=== PATIENT | female | born 1975 | race Caucasian/White ===

== ENCOUNTER 2017-12-30 08:08 | Outpatient (CLI) | payer MEDICAID ==
[2017-12-30 08:27] LABS: BASOPHILS % (AUTO) 0.3 %; EOSINOPHILS # (AUTO) 0.1 10^3/uL (0.0-0.7); EOSINOPHILS % (AUTO) 1.7 %; HGB - HEMOGLOBIN 14.3 g/dL (12.0-16.0); LYMPHOCYTES # (AUTO) 1.6 10^3/uL (1.5-3.5); LYMPHOCYTES % (AUTO) 30.3 %; MEAN CORPUSCULAR HGB CONC 33.9 g/dL (32.0-36.0); MEAN CORPUSCULAR VOLUME 85.6 fL (81.0-99.0); MEAN PLATELET VOLUME 8.9 fL (7.9-10.8); MONOCYTES # (AUTO) 0.5 10^3/uL (0.0-1.0); MONOCYTES % (AUTO) 9.8 %; NEUTROPHILS % (AUTO) 57.9 %; PLT - PLATELET COUNT 147 10^3/uL (130-450); RED BLOOD COUNT 4.92 10^6/uL (4.20-5.40); RED CELL DISTRIBUTION WIDTH 13.8 % (12.0-15.0); WHITE BLOOD COUNT 5.2 x10^3/uL (4.8-10.8)
[2017-12-30 08:56] LABS: ALBUMIN 4.2 g/dL (3.2-5.5); ALBUMIN/GLOBULIN RATIO 1.4 (1.0-2.2); BILIRUBIN,TOTAL 0.7 mg/dL (0.2-1.0); CALCIUM 9.1 mg/dL (8.5-10.3); CREATININE 0.8 mg/dL (0.4-1.0); TOTAL PROTEIN 7.1 g/dL (6.7-8.2)
== END 2017-12-30 08:09 | disposition home or self-care (01) ==
LOC: LAB 08:08
PROVIDERS: ATTEND Family Medicine
DX: I10 Essential (primary) hypertension (principal); B35.1 Tinea unguium; D50.0 Iron deficiency anemia secondary to blood loss (chronic)
CPT/HCPCS: 36415; 80053; 83540; 84466; 85025

== ENCOUNTER 2018-06-09 06:40 | Outpatient (CLI) | payer OTHER, MEDICAID ==
[2018-06-09 07:34] LABS: % IRON SATURATION 12 % (20-50); ALBUMIN 4.2 g/dL (3.2-5.5); ALBUMIN/GLOBULIN RATIO 1.4 (1.0-2.2); ALKALINE PHOSPHATASE 60 IU/L (42-121); ALT ALANINE AMINOTRANSFERASE 20 IU/L (10-60); AST ASPARTATE AMINOTRANSFERASE 23 IU/L (10-42); BASOPHILS % (AUTO) 0.4 %; BILIRUBIN,TOTAL 0.4 mg/dL (0.2-1.0); BUN - BLOOD UREA NITROGEN 12 mg/dL (6-20); CALCIUM 8.9 mg/dL (8.5-10.3); CARBON DIOXIDE - CO2 30 mmol/L (21-32); CHLORIDE 98 mmol/L (101-111); CHOL/HDL RATIO 3.3 (<4.4); CHOLESTEROL 243 mg/dL; CREATININE 0.8 mg/dL (0.4-1.0); EOSINOPHILS # (AUTO) 0.1 10^3/uL (0.0-0.7); EOSINOPHILS % (AUTO) 2.1 %; GFR - MDRD 79 (>89); GLUCOSE 95 mg/dL (70-100); HDL CHOLESTEROL 74 mg/dL; HGB - HEMOGLOBIN 12.6 g/dL (12.0-16.0); IRON 50 ug/dL (28-170); LDL CHOLESTEROL,CALCULATED 138 mg/dL; LDL/HDL RATIO 1.9 (<4.4); LYMPHOCYTES # (AUTO) 1.5 10^3/uL (1.5-3.5); LYMPHOCYTES % (AUTO) 33.3 %; MEAN CORPUSCULAR HGB CONC 34.2 g/dL (32.0-36.0); MEAN CORPUSCULAR VOLUME 84.9 fL (81.0-99.0); MEAN PLATELET VOLUME 9.4 fL (7.9-10.8); MONOCYTES # (AUTO) 0.4 10^3/uL (0.0-1.0); MONOCYTES % (AUTO) 9.1 %; NEUTROPHILS # (AUTO) 2.5 10^3/uL (1.5-6.6); NEUTROPHILS % (AUTO) 55.1 %; PLT - PLATELET COUNT 184 10^3/uL (130-450); RED BLOOD COUNT 4.35 10^6/uL (4.20-5.40); RED CELL DISTRIBUTION WIDTH 13.4 % (12.0-15.0); SODIUM 136 mmol/L (135-145); TOTAL IRON BINDING CAPACITY 434 ug/dL (250-450); TOTAL PROTEIN 7.2 g/dL (6.7-8.2); TRANSFERRIN 310 mg/dL (192-382); VLDL CHOLESTEROL 31 mg/dL; WHITE BLOOD COUNT 4.6 x10^3/uL (4.8-10.8)
[2018-06-09 07:43] LABS: THYROID STIMULATING HORMONE 1.65 uIU/mL (0.34-5.60)
[2018-06-09 07:51] LABS: FERRITIN 6.2 ng/mL (11.0-306.8)
[2018-06-09 07:55] LABS: FOLATE 20.58 ng/mL (5.90 - >24.8)
[2018-06-09 08:00] LABS: HB2 TOTAL 13.6 g/dL; HEMOGLOBIN A1C 0.44 g/dL; HEMOGLOBIN A1C % 5.1 % (4.6-6.2)
== END 2018-06-09 06:41 | disposition home or self-care (01) ==
LOC: LAB 06:40
PROVIDERS: ATTEND Family Medicine
DX: I10 Essential (primary) hypertension (principal); K21.9 Gastro-esophageal reflux disease without esophagitis; K91.2 Postsurgical malabsorption, not elsewhere classified; D50.9 Iron deficiency anemia, unspecified
CPT/HCPCS: 36415; 80053; 80061; 82306; 82607; 82728; 82746; 83036; 83540; 83721; 84425; 84443; 84466; 84590; 84630; 85025

== ENCOUNTER 2018-09-01 06:49 | Outpatient (CLI) | payer BC, MEDICAID ==
[2018-09-01 07:39] LABS: ALBUMIN 3.7 g/dL (3.2-5.5); ALBUMIN/GLOBULIN RATIO 1.3 (1.0-2.2); BILIRUBIN,TOTAL 0.4 mg/dL (0.2-1.0); CALCIUM 8.7 mg/dL (8.5-10.3); CREATININE 0.7 mg/dL (0.4-1.0); TOTAL PROTEIN 6.5 g/dL (6.7-8.2)
[2018-09-01 07:42] LABS: BASOPHILS % (AUTO) 0.5 %; EOSINOPHILS # (AUTO) 0.1 10^3/uL (0.0-0.7); EOSINOPHILS % (AUTO) 2.1 %; HGB - HEMOGLOBIN 11.8 g/dL (12.0-16.0); LYMPHOCYTES # (AUTO) 1.6 10^3/uL (1.5-3.5); LYMPHOCYTES % (AUTO) 35.8 %; MEAN CORPUSCULAR HEMOGLOBIN 26.8 pg (27.0-31.0); MEAN CORPUSCULAR HGB CONC 33.5 g/dL (32.0-36.0); MEAN PLATELET VOLUME 9.2 fL (7.9-10.8); MONOCYTES # (AUTO) 0.4 10^3/uL (0.0-1.0); MONOCYTES % (AUTO) 8.7 %; NEUTROPHILS # (AUTO) 2.3 10^3/uL (1.5-6.6); NEUTROPHILS % (AUTO) 52.9 %; PLT - PLATELET COUNT 181 10^3/uL (130-450); RED BLOOD COUNT 4.38 10^6/uL (4.20-5.40); RED CELL DISTRIBUTION WIDTH 14.4 % (12.0-15.0); WHITE BLOOD COUNT 4.4 x10^3/uL (4.8-10.8)
[2018-09-01 15:46] LABS: MAGNESIUM 2.2 mg/dL (1.7-2.8)
== END 2018-09-01 06:50 | disposition home or self-care (01) ==
LOC: LAB 06:49
PROVIDERS: ATTEND Family Medicine
DX: D50.9 Iron deficiency anemia, unspecified (principal); R94.31 Abnormal electrocardiogram [ECG] [EKG]; E87.6 Hypokalemia; Z98.84 Bariatric surgery status; E55.9 Vitamin D deficiency, unspecified
CPT/HCPCS: 36415; 80053; 82306; 82728; 83540; 83735; 84466; 85025

== ENCOUNTER 2018-10-13 06:09 | Outpatient (CLI) | payer BC, MEDICAID ==
[2018-10-13 06:24] LABS: BASOPHILS % (AUTO) 0.5 %; EOSINOPHILS # (AUTO) 0.1 10^3/uL (0.0-0.7); EOSINOPHILS % (AUTO) 1.7 %; HGB - HEMOGLOBIN 13.3 g/dL (12.0-16.0); LYMPHOCYTES # (AUTO) 2.1 10^3/uL (1.5-3.5); LYMPHOCYTES % (AUTO) 40.2 %; MEAN CORPUSCULAR HEMOGLOBIN 27.8 pg (27.0-31.0); MEAN CORPUSCULAR HGB CONC 33.5 g/dL (32.0-36.0); MEAN PLATELET VOLUME 8.5 fL (7.9-10.8); MONOCYTES # (AUTO) 0.4 10^3/uL (0.0-1.0); MONOCYTES % (AUTO) 8.1 %; NEUTROPHILS # (AUTO) 2.6 10^3/uL (1.5-6.6); NEUTROPHILS % (AUTO) 49.5 %; PLT - PLATELET COUNT 179 10^3/uL (130-450); RED BLOOD COUNT 4.77 10^6/uL (4.20-5.40); RED CELL DISTRIBUTION WIDTH 19.9 % (12.0-15.0); WHITE BLOOD COUNT 5.2 x10^3/uL (4.8-10.8)
[2018-10-13 06:54] LABS: % IRON SATURATION 19 % (20-50); IRON 57 ug/dL (28-170); TOTAL IRON BINDING CAPACITY 308 ug/dL (250-450); TRANSFERRIN 220 mg/dL (192-382)
== END 2018-10-13 06:10 | disposition home or self-care (01) ==
LOC: LAB 06:09
PROVIDERS: ATTEND Family Medicine
DX: D50.9 Iron deficiency anemia, unspecified (principal)
CPT/HCPCS: 36415; 82728; 83540; 84466; 85025

== ENCOUNTER 2019-03-27 08:00 | Outpatient (CLI) | payer BC, MEDICAID | END 2019-03-27 23:59 | disposition home or self-care (01) | LOC: LAB.R 08:00 | PROVIDERS: ATTEND Obstetrics & Gynecology | DX: L02.92 Furuncle, unspecified (principal) | CPT/HCPCS: 87070; 87181; 87205 ==

== ENCOUNTER 2019-04-17 15:27 | Outpatient (CLI) | payer BC, MEDICAID ==
--- NOTE | 2019-04-18 08:57 | Mammography Report ---
Reason: ROUTINE MAMMO Procedure Date: 04/17/2019 Accession Number: [id number] / [id number] Procedure: DARIEN - Screening Mammo w/Drew CPT Code: FULL RESULT: EXAM: Screening Mammo w/Drew DATE: 04/17/2019 3:47 PM CLINICAL HISTORY: Maternal grandmother with breast cancer TECHNIQUE: (B) - Bilateral CC and MLO views were obtained. COMPARISON: Baseline PARENCHYMAL PATTERN: (A) - The breasts demonstrate scattered fibroglandular densities bilaterally. FINDINGS: There are no suspicious masses, calcifications, skin thickening, or areas of distortion. IMPRESSION: Negative examination. BI-RADS category 1. RECOMMENDATION: (ANNUAL) - Recommend routine annual screening mammography. BI-RADS CATEGORY: (1) - Negative. STANDARD QUALIFYING STATEMENTS: 1. This examination was not reviewed with the aid of Computer-Aided Detection (CAD). 2. A negative or benign imaging report should not preclude biopsy if clinically suspicious findings are present. 3. Dense breasts may obscure an underlying neoplasm. 4. This examination was reviewed with the aid of 3D breast imaging (tomosynthesis).
== END 2019-04-17 15:28 | disposition home or self-care (01) ==
LOC: DI 15:27
DX: Z12.31 Encounter for screening mammogram for malignant neoplasm of breast (principal); Z80.3 Family history of malignant neoplasm of breast
CPT/HCPCS: 77063; 77067

== ENCOUNTER 2019-04-25 08:07 | Outpatient (CLI) | payer BC, MEDICAID ==
[2019-04-25 08:28] LABS: BASOPHILS % (AUTO) 0.3 %; EOSINOPHILS # (AUTO) 0.1 10^3/uL (0.0-0.7); EOSINOPHILS % (AUTO) 1.4 %; HGB - HEMOGLOBIN 13.3 g/dL (12.0-16.0); LYMPHOCYTES # (AUTO) 1.5 10^3/uL (1.5-3.5); LYMPHOCYTES % (AUTO) 26.3 %; MEAN CORPUSCULAR HEMOGLOBIN 29.2 pg (27.0-31.0); MEAN CORPUSCULAR HGB CONC 33.1 g/dL (32.0-36.0); MEAN CORPUSCULAR VOLUME 88.2 fL (81.0-99.0); MEAN PLATELET VOLUME 10.9 fL (7.9-10.8); MONOCYTES # (AUTO) 0.5 10^3/uL (0.0-1.0); MONOCYTES % (AUTO) 8.7 %; NEUTROPHILS # (AUTO) 3.6 10^3/uL (1.5-6.6); PLT - PLATELET COUNT 186 10^3/uL (130-450); RED BLOOD COUNT 4.56 10^6/uL (4.20-5.40); WHITE BLOOD COUNT 5.8 x10^3/uL (4.8-10.8)
[2019-04-25 08:46] LABS: HB2 TOTAL 13.7 g/dL; HEMOGLOBIN A1C 0.43 g/dL
[2019-04-25 09:54] LABS: ALBUMIN/GLOBULIN RATIO 1.3 (1.0-2.2); BILIRUBIN,TOTAL 0.6 mg/dL (0.2-1.0); CALCIUM 9.3 mg/dL (8.5-10.3); CREATININE 0.7 mg/dL (0.4-1.0)
== END 2019-04-25 08:08 | disposition home or self-care (01) ==
LOC: LAB 08:07
PROVIDERS: ATTEND Nurse Practitioner
DX: D64.9 Anemia, unspecified (principal); R73.9 Hyperglycemia, unspecified
CPT/HCPCS: 36415; 80053; 82728; 83036; 83540; 84466; 85025

== ENCOUNTER 2019-07-27 11:38 | Outpatient (CLI) | payer BC, MEDICAID ==
--- NOTE | 2019-07-30 07:31 | XRAY Report ---
Reason: PAIN IN RIGHT SHOULDER Procedure Date: 07/27/2019 Accession Number: [id number] / [id number] Procedure: XR - Shoulder 2 View RT CPT Code: Final Report FULL RESULT: EXAM: RIGHT SHOULDER RADIOGRAPHY 3 VIEWS EXAM DATE: 07/27/2019. CLINICAL HISTORY: Right shoulder pain. COMPARISON: None. TECHNIQUE: AP and scapular Y views. FINDINGS: Bones: No fracture or other acute abnormality. Small osteophytes at the margins of the acromioclavicular joint. Joints: No subluxation. Mild narrowing of the acromioclavicular joint. Glenohumeral joint appears normal. Soft tissues: No calcifications. The included right lung is clear. IMPRESSION: Mild degenerative changes of the acromioclavicular joint. Otherwise normal examination. RADIA
== END 2019-07-27 11:39 | disposition home or self-care (01) ==
LOC: DI 11:38
PROVIDERS: ATTEND Nurse Practitioner
DX: M19.011 Primary osteoarthritis, right shoulder (principal)

== ENCOUNTER 2019-11-19 20:18 | Outpatient (CLI) | payer BC, MEDICAID ==
[2019-11-19 20:36] LABS: BASOPHILS # (AUTO) 0.1 10^3/uL (0.0-0.1); BASOPHILS % (AUTO) 0.6 %; EOSINOPHILS # (AUTO) 0.1 10^3/uL (0.0-0.7); EOSINOPHILS % (AUTO) 1.4 %; HGB - HEMOGLOBIN 13.6 g/dL (12.0-16.0); LYMPHOCYTES # (AUTO) 2.6 10^3/uL (1.5-3.5); LYMPHOCYTES % (AUTO) 30.6 %; MEAN CORPUSCULAR HEMOGLOBIN 28.5 pg (27.0-31.0); MEAN CORPUSCULAR HGB CONC 33.4 g/dL (32.0-36.0); MEAN CORPUSCULAR VOLUME 85.3 fL (81.0-99.0); MEAN PLATELET VOLUME 11.3 fL (7.9-10.8); MONOCYTES % (AUTO) 11.2 %; NEUTROPHILS # (AUTO) 4.8 10^3/uL (1.5-6.6); NEUTROPHILS % (AUTO) 55.8 %; PLT - PLATELET COUNT 224 10^3/uL (130-450); RED BLOOD COUNT 4.77 10^6/uL (4.20-5.40); RED CELL DISTRIBUTION WIDTH 13.6 % (12.0-15.0); WHITE BLOOD COUNT 8.5 x10^3/uL (4.8-10.8)
[2019-11-19 20:54] LABS: % IRON SATURATION 11 % (20-50); IRON 48 ug/dL (28-170); TOTAL IRON BINDING CAPACITY 444 ug/dL (250-450); TRANSFERRIN 317 mg/dL (192-382)
== END 2019-11-19 20:19 | disposition home or self-care (01) ==
LOC: LAB 20:18
PROVIDERS: ATTEND Nurse Practitioner
DX: D64.9 Anemia, unspecified (principal); R73.9 Hyperglycemia, unspecified
CPT/HCPCS: 36415; 82728; 83540; 84466; 85025

== ENCOUNTER 2019-12-26 09:32 | Outpatient (CLI) | payer BC, MEDICAID ==
[2019-12-26 09:44] LABS: BASOPHILS % (AUTO) 0.4 %; EOSINOPHILS # (AUTO) 0.1 10^3/uL (0.0-0.7); EOSINOPHILS % (AUTO) 1.2 %; HGB - HEMOGLOBIN 13.5 g/dL (12.0-16.0); LYMPHOCYTES # (AUTO) 1.3 10^3/uL (1.5-3.5); MEAN CORPUSCULAR HEMOGLOBIN 28.2 pg (27.0-31.0); MEAN CORPUSCULAR HGB CONC 32.8 g/dL (32.0-36.0); MEAN CORPUSCULAR VOLUME 85.8 fL (81.0-99.0); MEAN PLATELET VOLUME 10.9 fL (7.9-10.8); MONOCYTES # (AUTO) 0.5 10^3/uL (0.0-1.0); MONOCYTES % (AUTO) 9.8 %; NEUTROPHILS # (AUTO) 3.2 10^3/uL (1.5-6.6); NEUTROPHILS % (AUTO) 62.4 %; PLT - PLATELET COUNT 201 10^3/uL (130-450); RED BLOOD COUNT 4.79 10^6/uL (4.20-5.40); RED CELL DISTRIBUTION WIDTH 14.3 % (12.0-15.0); WHITE BLOOD COUNT 5.1 x10^3/uL (4.8-10.8)
[2019-12-26 10:02] LABS: % IRON SATURATION 21 % (20-50); ALBUMIN 4.2 g/dL (3.2-5.5); ALBUMIN/GLOBULIN RATIO 1.2 (1.0-2.2); ALKALINE PHOSPHATASE 63 IU/L (42-121); ALT ALANINE AMINOTRANSFERASE 16 IU/L (10-60); AST ASPARTATE AMINOTRANSFERASE 18 IU/L (10-42); BILIRUBIN,TOTAL 0.8 mg/dL (0.2-1.0); BUN - BLOOD UREA NITROGEN 12 mg/dL (6-20); CALCIUM 9.1 mg/dL (8.5-10.3); CARBON DIOXIDE - CO2 29 mmol/L (21-32); CHLORIDE 96 mmol/L (101-111); CHOL/HDL RATIO 4.1 (<4.4); CHOLESTEROL 261 mg/dL; CREATININE 0.9 mg/dL (0.4-1.0); GLUCOSE 99 mg/dL (70-100); HDL CHOLESTEROL 63 mg/dL; IRON 89 ug/dL (28-170); LDL CHOLESTEROL,CALCULATED 168 mg/dL; LDL/HDL RATIO 2.7 (<4.4); SODIUM 135 mmol/L (135-145); TOTAL IRON BINDING CAPACITY 424 ug/dL (250-450); TOTAL PROTEIN 7.7 g/dL (6.7-8.2); TRANSFERRIN 303 mg/dL (192-382); VLDL CHOLESTEROL 30 mg/dL
[2019-12-26 10:19] LABS: FERRITIN 16.7 ng/mL (11.0-306.8)
== END 2019-12-26 09:33 | disposition home or self-care (01) ==
LOC: LAB 09:32
PROVIDERS: ATTEND Family Medicine
DX: E87.6 Hypokalemia (principal); Z98.84 Bariatric surgery status; D50.0 Iron deficiency anemia secondary to blood loss (chronic); E78.49 Other hyperlipidemia; E66.09 Other obesity due to excess calories; Z68.36 Body mass index [BMI] 36.0-36.9, adult
CPT/HCPCS: 36415; 80053; 80061; 82728; 83540; 83721; 84443; 84466; 85025

== ENCOUNTER 2020-08-11 09:38 | Outpatient (CLI) | payer BC, MEDICAID ==
[2020-08-11 10:13] LABS: HGB - HEMOGLOBIN 12.2 g/dL (12.0-16.0); MEAN CORPUSCULAR HEMOGLOBIN 26.9 pg (27.0-31.0); MEAN CORPUSCULAR HGB CONC 32.1 g/dL (32.0-36.0); MEAN CORPUSCULAR VOLUME 83.7 fL (81.0-99.0); MEAN PLATELET VOLUME 11.2 fL (7.9-10.8); RED BLOOD COUNT 4.54 10^6/uL (4.20-5.40); RED CELL DISTRIBUTION WIDTH 14.5 % (12.0-15.0); WHITE BLOOD COUNT 5.2 x10^3/uL (4.8-10.8)
[2020-08-11 10:36] LABS: ALBUMIN 3.8 g/dL (3.2-5.5); ALBUMIN/GLOBULIN RATIO 1.3 (1.0-2.2); ALKALINE PHOSPHATASE 65 IU/L (42-121); ALT ALANINE AMINOTRANSFERASE 24 IU/L (10-60); AST ASPARTATE AMINOTRANSFERASE 19 IU/L (10-42); BILIRUBIN,TOTAL 0.4 mg/dL (0.2-1.0); BUN - BLOOD UREA NITROGEN 11 mg/dL (6-20); CALCIUM 8.9 mg/dL (8.5-10.3); CARBON DIOXIDE - CO2 27 mmol/L (21-32); CHLORIDE 103 mmol/L (101-111); CHOL/HDL RATIO 4.2 (<4.4); CHOLESTEROL 238 mg/dL; CREATININE 0.8 mg/dL (0.4-1.0); GLUCOSE 91 mg/dL (70-100); HDL CHOLESTEROL 57 mg/dL; LDL CHOLESTEROL,CALCULATED 150 mg/dL; LDL/HDL RATIO 2.6 (<4.4); SODIUM 138 mmol/L (135-145); TOTAL PROTEIN 6.8 g/dL (6.7-8.2); VLDL CHOLESTEROL 31 mg/dL
[2020-08-11 10:49] LABS: FERRITIN 10.9 ng/mL (11.0-306.8)
[2020-08-11 13:28] LABS: % IRON SATURATION 4 % (20-50); IRON 18 ug/dL (28-170); TOTAL IRON BINDING CAPACITY 423 ug/dL (250-450); TRANSFERRIN 302 mg/dL (192-382)
== END 2020-08-11 09:39 | disposition home or self-care (01) ==
LOC: LAB 09:38
PROVIDERS: ATTEND Surgery
DX: D50.9 Iron deficiency anemia, unspecified (principal); K91.2 Postsurgical malabsorption, not elsewhere classified
CPT/HCPCS: 36415; 80053; 80061; 82306; 82607; 82728; 83540; 83721; 84425; 84466; 84590; 84630; 85027

== ENCOUNTER 2020-10-08 09:17 | Outpatient (CLI) | payer BC, MEDICAID ==
[2020-10-08 09:44] LABS: HCT - HEMATOCRIT 38.2 % (37.0-47.0); HGB - HEMOGLOBIN 12.7 g/dL (12.0-16.0); MEAN CORPUSCULAR HEMOGLOBIN 28.5 pg (27.0-31.0); MEAN CORPUSCULAR HGB CONC 33.2 g/dL (32.0-36.0); MEAN CORPUSCULAR VOLUME 85.7 fL (81.0-99.0); MEAN PLATELET VOLUME 10.6 fL (7.9-10.8); RED BLOOD COUNT 4.46 10^6/uL (4.20-5.40); RED CELL DISTRIBUTION WIDTH 14.8 % (12.0-15.0); WHITE BLOOD COUNT 4.2 x10^3/uL (4.8-10.8)
[2020-10-08 10:16] LABS: % IRON SATURATION 15 % (20-50); ALBUMIN 3.9 g/dL (3.2-5.5); ALBUMIN/GLOBULIN RATIO 1.3 (1.0-2.2); ALKALINE PHOSPHATASE 61 IU/L (42-121); ALT ALANINE AMINOTRANSFERASE 22 IU/L (10-60); AST ASPARTATE AMINOTRANSFERASE 19 IU/L (10-42); BILIRUBIN,TOTAL 0.4 mg/dL (0.2-1.0); BUN - BLOOD UREA NITROGEN 11 mg/dL (6-20); CALCIUM 8.8 mg/dL (8.5-10.3); CARBON DIOXIDE - CO2 28 mmol/L (21-32); CHLORIDE 100 mmol/L (101-111); CHOL/HDL RATIO 2.5 (<4.4); CHOLESTEROL 147 mg/dL; CREATININE 0.8 mg/dL (0.4-1.0); GFR - MDRD 78 (>89); GLUCOSE 92 mg/dL (70-100); HDL CHOLESTEROL 58 mg/dL; IRON 58 ug/dL (28-170); LDL CHOLESTEROL,CALCULATED 65 mg/dL; LDL/HDL RATIO 1.1 (<4.4); POTASSIUM 3.5 mmol/L (3.5-5.0); SODIUM 137 mmol/L (135-145); TOTAL IRON BINDING CAPACITY 377 ug/dL (250-450); TOTAL PROTEIN 6.8 g/dL (6.7-8.2); TRANSFERRIN 269 mg/dL (192-382); TRIGLYCERIDES 118 mg/dL; VLDL CHOLESTEROL 24 mg/dL
[2020-10-08 10:18] LABS: FERRITIN 42.9 ng/mL (11.0-306.8)
[2020-10-08 10:21] LABS: FOLATE 8.98 ng/mL (5.90 - >24.8)
== END 2020-10-08 09:18 | disposition home or self-care (01) ==
LOC: LAB 09:17
PROVIDERS: ATTEND Surgery
DX: K91.2 Postsurgical malabsorption, not elsewhere classified (principal)
CPT/HCPCS: 36415; 80053; 80061; 82306; 82607; 82728; 82746; 83540; 83721; 84425; 84466; 84590; 84630; 85027

== ENCOUNTER 2021-02-04 08:53 | Outpatient (CLI) | payer BC, MEDICAID ==
[2021-02-04 09:37] LABS: HCT - HEMATOCRIT 37.4 % (37.0-47.0); HGB - HEMOGLOBIN 12.7 g/dL (12.0-16.0); MEAN CORPUSCULAR HEMOGLOBIN 29.7 pg (27.0-31.0); MEAN CORPUSCULAR VOLUME 87.6 fL (81.0-99.0); MEAN PLATELET VOLUME 11.9 fL (7.9-10.8); RED BLOOD COUNT 4.27 10^6/uL (4.20-5.40); RED CELL DISTRIBUTION WIDTH 13.8 % (12.0-15.0); WHITE BLOOD COUNT 3.7 x10^3/uL (4.8-10.8)
[2021-02-04 09:58] LABS: % IRON SATURATION 20 % (20-50); ALBUMIN/GLOBULIN RATIO 1.6 (1.0-2.2); ALKALINE PHOSPHATASE 74 IU/L (42-121); ALT ALANINE AMINOTRANSFERASE 21 IU/L (10-60); AST ASPARTATE AMINOTRANSFERASE 16 IU/L (10-42); BILIRUBIN,TOTAL 0.6 mg/dL (0.2-1.0); BUN - BLOOD UREA NITROGEN 9 mg/dL (6-20); CALCIUM 8.9 mg/dL (8.5-10.3); CARBON DIOXIDE - CO2 26 mmol/L (21-32); CHLORIDE 102 mmol/L (101-111); CHOLESTEROL 176 mg/dL; CREATININE 0.7 mg/dL (0.4-1.0); GFR - MDRD 90 (>89); GLUCOSE 88 mg/dL (70-100); HDL CHOLESTEROL 44 mg/dL; IRON 64 ug/dL (28-170); LDL CHOLESTEROL,CALCULATED 109 mg/dL; LDL/HDL RATIO 2.5 (<4.4); POTASSIUM 3.1 mmol/L (3.5-5.0); SODIUM 138 mmol/L (135-145); TOTAL IRON BINDING CAPACITY 321 ug/dL (250-450); TOTAL PROTEIN 6.5 g/dL (6.7-8.2); TRANSFERRIN 229 mg/dL (192-382); TRIGLYCERIDES 116 mg/dL; VLDL CHOLESTEROL 23 mg/dL
[2021-02-04 10:14] LABS: FERRITIN 64.6 ng/mL (11.0-306.8)
[2021-02-04 10:18] LABS: FOLATE 9.52 ng/mL (5.90 - >24.8)
[2021-02-04 11:56] LABS: ESTIMATED AVERAGE GLUCOSE 94 mg/dL (70-100); HEMOGLOBIN A1c% 4.9 % (4.27-6.07)
== END 2021-02-04 08:54 | disposition home or self-care (01) ==
LOC: LAB 08:53
PROVIDERS: ATTEND Physician Assistant
DX: K91.2 Postsurgical malabsorption, not elsewhere classified (principal)
CPT/HCPCS: 36415; 80053; 80061; 82306; 82607; 82728; 82746; 83036; 83540; 83721; 84425; 84466; 84590; 84630; 85027

== ENCOUNTER 2023-12-14 08:00 | Outpatient (CLI) | payer BC, MEDICAID ==
[2023-12-14 20:32] LABS: BACTERIAL VAGINOSIS DNA NEGATIVE (NEGATIVE); CANDIDA GLABRATA DNA NEGATIVE (NEGATIVE); CANDIDA GROUP DNA NEGATIVE (NEGATIVE); CANDIDA KRUSEI DNA NEGATIVE (NEGATIVE); TRICHOMONAS VAGINALIS DNA NEGATIVE (NEGATIVE)
== END 2023-12-14 23:59 | disposition home or self-care (01) ==
LOC: LAB.WC 08:00
PROVIDERS: ATTEND Obstetrics & Gynecology
DX: N76.0 Acute vaginitis (principal)
CPT/HCPCS: 81514

== ENCOUNTER 2024-01-23 12:12 | Observation (INO) | payer BC ==
[2024-01-23 12:44] LABS: BASOPHILS % (AUTO) 0.6 %; EOSINOPHILS # (AUTO) 0.1 10^3/uL (0.0-0.7); EOSINOPHILS % (AUTO) 2.4 %; LYMPHOCYTES # (AUTO) 1.4 10^3/uL (1.5-3.5); LYMPHOCYTES % (AUTO) 29.1 %; MEAN CORPUSCULAR HEMOGLOBIN 15.8 pg (27.0-31.0); MEAN CORPUSCULAR HGB CONC 25.8 g/dL (32.0-36.0); MEAN CORPUSCULAR VOLUME 61.5 fL (81.0-99.0); MONOCYTES # (AUTO) 0.5 10^3/uL (0.0-1.0); MONOCYTES % (AUTO) 9.6 %; NEUTROPHILS # (AUTO) 2.7 10^3/uL (1.5-6.6); NEUTROPHILS % (AUTO) 58.1 %; PLT - PLATELET COUNT 218 10^3/uL (130-450); RED BLOOD COUNT 3.22 10^6/uL (4.20-5.40); RED CELL DISTRIBUTION WIDTH 21.1 % (12.0-15.0); WHITE BLOOD COUNT 4.7 x10^3/uL (4.8-10.8)
[2024-01-23 12:47] LABS: HCT - HEMATOCRIT 19.8 % (37.0-47.0); HGB - HEMOGLOBIN 5.1 g/dL (12.0-16.0)
[2024-01-23 12:48] LABS: RBC MORPHOLOGY (MULTIPLE) 4+ ANISOCYTOSIS (NORMAL); SLIDE REVIEW? Indicated
[2024-01-23 12:58] LABS: PARTIAL THROMBOPLASTIN TIME 26.8 secs (24.9-33.3)
[2024-01-23 13:02] LABS: INR 1.2 (0.8-1.2); PT - PROTHROMBIN TIME 12.5 secs (9.9-12.6)
--- NOTE | 2024-01-23 13:06 | ED Physician Documentation ---
History of Present Illness - Stated complaint Stated Complaint: LOW H/H - Chief complaint Chief Complaint: General - History obtained from History obtained from: Patient - History of Present Illness Timing: Chronic Pain level max: 0 Pain level now: 0 - Additonal information Additional information: 48-year-old female presents to the emergency department. History of iron deficiency anemia, used to receive iron infusions, but has not received one on 01/18/2022. She has been feeling fatigued and weak with exertion. Outpatient H&H was 5.3, primary care provider instructed her to come to the emergency department. No rectal bleeding. She is currently on her menses. She is not on any anticoagulants. Better with rest, worse with exertion. Review of Systems Constitutional: denies: Fever Respiratory: denies: Cough GI: denies: Vomiting, Diarrhea PD PAST MEDICAL HISTORY - Past Medical History Past Medical History: No - Past Surgical History Past Surgical History: Yes /WELLNESS DIRECTOR: section - Present Medications Home Medications: Ambulatory Orders Medication Instructions Recorded Confirmed Acetaminophen [Tylenol] 1,300 mg PO BID 01/23/24 01/23/24 Cetirizine HCl [Zyrtec] 10 mg PO DAILY 01/23/24 01/23/24 Estradiol [Estrace] 42.5 gm VG PRN PRN 01/23/24 01/23/24 Melatonin 10 mg PO HS 01/23/24 01/23/24 Norethindrone-E.estradiol-Iron [Lo 1 tab ORAL DAILY 01/23/24 01/23/24 Loestrin Fe 1-10 Tablet] Ondansetron Odt [Zofran Odt] 4 mg TL Q8HR PRN 01/23/24 01/23/24 Pregabalin 100 mg PO HS 01/23/24 01/23/24 Zolpidem [Ambien] 5 mg PO HS PRN 01/23/24 01/23/24 - Allergies Allergies/Adverse Reactions: Allergies Allergy/AdvReac Type Severity Reaction Status Date / Time No Known Drug Allergies Allergy Verified 01/23/24 12:24 - Social History Does the pt smoke?: No Smoking Status: Never smoker Does the pt drink ETOH?: No PD ED PE NORMAL - Vitals Vital signs reviewed: Yes - General General: Alert and oriented X 3, No acute distress, Other (Pale appearing) - HEENT HEENT: Moist mucous membranes - Neck Neck: Supple, no meningeal sign - Cardiac Cardiac: RRR, Strong equal pulses - Respiratory Respiratory: No respiratory distress, Clear bilaterally - Abdomen Abdomen: Soft, Non tender, Non distended - Derm Derm: Warm and dry - Neuro Neuro: Alert and oriented X 3 - Psych Psych: Normal mood, Normal affect Results - Vitals Vitals: Vital Signs - 24 hr 01/23/24 01/23/24 12:15 13:13 Temperature 36.6 C Heart Rate 69 62 Respiratory 20 12 Rate Blood Pressure 142/63 H 165/85 H O2 Saturation 99 99 Oxygen O2 Source Room air - Labs Labs: Laboratory Tests 01/23/24 01/23/24 01/23/24 12:33 12:33 12:33 WBC 4.7 L RBC 3.22 L Hgb 5.1 L* Hct 19.8 L* MCV 61.5 L MCH 15.8 L MCHC 25.8 L RDW 21.1 H Plt Count 218 Neut # (Auto) 2.7 Lymph # (Auto) 1.4 L [place] # (Auto) 0.5 Eos # (Auto) 0.1 Baso # (Auto) 0.0 Absolute Nucleated RBC 0.00 Nucleated RBC % 0.0 Manual Slide Review Indicated RBC Morph Micro Appear 4+ ANISOCYTOSIS PT 12.5 INR 1.2 APTT 26.8 Sodium Potassium Chloride Carbon Dioxide Anion Gap BUN Creatinine Estimated GFR (MDRD) Glucose Calcium Iron TIBC % Saturation Transferrin Total Bilirubin AST ALT Alkaline Phosphatase Total Protein Albumin Globulin Albumin/Globulin Ratio Lipase Serum HCG, Qual Blood Type A NEGATIVE Antibody Screen NEGATIVE Crossmatch IS Only See Detail 01/23/24 01/23/24 12:33 12:33 WBC RBC Hgb Hct MCV MCH MCHC RDW Plt Count Neut # (Auto) Lymph # (Auto) [place] # (Auto) Eos # (Auto) Baso # (Auto) Absolute Nucleated RBC Nucleated RBC % Manual Slide Review RBC Morph Micro Appear PT INR APTT Sodium 140 Potassium 3.6 Chloride 108 Carbon Dioxide 26 Anion Gap 6.0 BUN 12 Creatinine 0.8 Estimated GFR (MDRD) 77 L Glucose 83 Calcium 9.0 Iron 12 L TIBC 658 H % Saturation 2 L Transferrin 470 H Total Bilirubin 0.3 AST 12 ALT 9 L Alkaline Phosphatase 78 Total Protein 6.6 Albumin 4.2 Globulin 2.4 Albumin/Globulin Ratio 1.8 Lipase < 10 L Serum HCG, Qual NEGATIVE Blood Type Antibody Screen Crossmatch IS Only PD Medical Decision Making - ED course Complexity details: reviewed results, re-evaluated patient, considered differential, d/w patient, d/w ux consultant ED course: 48-year-old female with significant symptomatic anemia, hemoglobin down to 5. She will need several units of blood, therefore we will place the patient in observation. Discussed the case with the hospitalist who accepts. This document was made in part using voice recognition software. While efforts are made to proofread this document, sound alike and grammatical errors may occur. Departure - Departure Disposition: ED Place in Observation Clinical Impression: Symptomatic anemia Condition: Good Discharge Date/Time: 01/23/24 14:09
[2024-01-23 13:21] LABS: % IRON SATURATION 2 % (20-50); IRON 12 ug/dL (50-212); TOTAL IRON BINDING CAPACITY 658 ug/dL (250-450); TRANSFERRIN 470 mg/dL (203-362)
[2024-01-23 13:22] LABS: ALBUMIN 4.2 g/dL (3.2-5.5); ALBUMIN/GLOBULIN RATIO 1.8 (1.0-2.2); ALKALINE PHOSPHATASE 78 IU/L (42-121); ALT ALANINE AMINOTRANSFERASE 9 IU/L (10-60); AST ASPARTATE AMINOTRANSFERASE 12 IU/L (10-42); BILIRUBIN,TOTAL 0.3 mg/dL (0.2-1.0); BUN - BLOOD UREA NITROGEN 12 mg/dL (6-20); CARBON DIOXIDE - CO2 26 mmol/L (21-32); CHLORIDE 108 mmol/L (101-111); CREATININE 0.8 mg/dL (0.6-1.3); GFR - MDRD 77 (>89); GLUCOSE 83 mg/dL (74-104); HCG,QUALITATIVE BLOOD NEGATIVE; POTASSIUM 3.6 mmol/L (3.5-4.5); SODIUM 140 mmol/L (135-145); TOTAL PROTEIN 6.6 g/dL (6.4-8.9)
[2024-01-23 13:29] LABS: LIPASE < 10 U/L (11-82)
[2024-01-23] MEDS ORDERED: SODIUM CHLORIDE FLUSH 0.9% 10 ML SYRINGE IVP PRN (13:45)
[2024-01-23] MEDS ORDERED: ONDANSETRON ODT 4 MG TABLET TL PRN ×2 (13:45→13:53)
--- NOTE | 2024-01-23 13:57 | HISTORY & PHYSICAL EXAMINATION ---
Chief Complaint - Chief Complaint Chief Complaint: Weakness History of Present Illness - Admitted From Admitted From:: Admitted from the ED - History Obtained From Records Reviewed: Yes History obtained from: Patient - History of Present Illness HPI Comment/Other: Today the patient is an extremely pleasant 48-year-old female. She has no significant past medical history. She has been following as an outpatient with a naturopathic physician who ordered some lab work. She was sent to the emergency room as she was found to have severe anemia. Workup in the emergency room was unremarkable other than the fact that the patient was found to have a hemoglobin of 5.1. Sound hospitalist were consulted for admission. When I went to see the patient she is resting comfortably in the bed. She says she has been quite weak. She has been having extremely heavy periods and is following with a naturopathic physician for perimenopausal type of symptoms. She denies fever or chills. No chest pain or significant shortness of breath. No nausea vomiting or diarrhea. No urinary complaints History - Past Medical History Cardiovascular: reports: None Respiratory: reports: None Neuro: reports: None Endocrine/Autoimmune: reports: None GI: reports: None CREDIT RATING INSPECTOR: reports: Other (Perimenopause with menorrhagia) : reports: None HEENT: reports: None Psych: reports: None Musculoskeletal: reports: Other (Cervical stenosis) Derm: reports: None MRSA Hx?: Yes - Past Surgical History General: reports: Gastric surgery (History of a gastric bypass) /CREDIT RATING INSPECTOR: reports: section - Family & Social History Family History: Mother: Alive and Well, Hypertension, Father: , Cancer (Grandparents), Other family: CAD, Cancer Living arrangement: Other (The patient lives at home with her parents, adult son and young daughter) Living Situation: With family - Substance History Use: Uses substance without health or social issues: NONE Dependence: Experiences withdrawal or developed tolerances: NONE - POLST Patient has POLST: No POLST Status: Full Code Meds/Allgy - Home Medications Home Medications: Ambulatory Orders Medication Instructions Recorded Confirmed Cetirizine HCl [Zyrtec] 10 mg PO DAILY 01/23/24 01/23/24 Melatonin 10 mg PO HS 01/23/24 01/23/24 Norethindrone-E.estradiol-Iron [Lo 1 tab ORAL DAILY 01/23/24 01/23/24 Loestrin Fe 1-10 Tablet] Ondansetron Odt [Zofran Odt] 4 mg TL Q8HR PRN 01/23/24 01/23/24 Pregabalin [Lyrica] 100 mg PO DAILY PM 01/23/24 01/23/24 - Allergies Allergies/Adverse Reactions: Allergies Allergy/AdvReac Type Severity Reaction Status Date / Time No Known Drug Allergies Allergy Verified 01/23/24 12:24 Review of Systems - Constitutional Constitutional: reports: Fatigue - Genitourinary Genitourinary: reports: Other (Menorrhagia) - Musculoskeletal Musculoskeletal: reports: Other (Mild neck pain) - Hematologic/Lymphatic Hematologic/Lymphatic: reports: Anemia Prior Level of Functionality: Fully functional with her ADLs Exam - Vital Signs Reviewed Vital Signs: Yes Vital Signs: Vital Signs x48h Temp Pulse Resp BP Pulse Ox 01/23/24 13:13 62 12 165/85 H 99 01/23/24 12:15 36.6 C 69 20 142/63 H 99 - Physical Exam General Appearance: positive: No acute distress, Alert Eyes Bilateral: positive: Normal inspection ENT: positive: ENT inspection nml Neck: positive: Nml inspection Respiratory: positive: Chest non-tender Cardiovascular: positive: Regular rate & rhythm, No murmur, No gallop. negative: Friction rub Abdomen: positive: Non-tender, No organomegaly, Nml bowel sounds Skin: positive: Color nml, No rash, Warm, Dry Extremities: positive: Non-tender, Full ROM, Nml appearance Neurologic/Psychiatric: positive: Oriented x3, CN's nml (2-12) Sepsis Event Note (H) - Evaluation Current Stage of Sepsis: Ruled out Conclusion/Plan - Problem List (1) Acute blood loss anemia Conclusion/Plan: The patient presents to the emergency room with acute blood loss anemia and due to menorrhagia. She will receive 2 units of packed red blood cells. We will repeat a CBC posttransfusion. Will transfuse the patient until her hemoglobin is up to 7. (2) Iron deficiency Conclusion/Plan: The patient has known iron deficiency. She has a history of a gastric bypass. She does not absorb p.o. iron. She previously used to get iron infusions. Her primary care provider went out on maternity leave and she has not been back to see her in a year and a half and has not been getting iron infusions. Will give her a dose of IV Feraheme during this hospitalization. She is encouraged to get back to her primary care physician and resume her iron infusions (3) Menorrhagia Conclusion/Plan: She is working with a naturopathic physician. She recently was started on control pills which will be continued during this hospitalization. This was to help manage her heavy bleeding. (4) Cervical spinal stenosis Conclusion/Plan: She takes Lyrica 50 mg nightly for neuropathic pain from her spinal stenosis. (5) Obesity (BMI 30.0-34.9) Conclusion/Plan: Weight loss is recommended through dietary modification and exercise as tolerated - Lab Results Fish Bones: 01/23/24 12:33 01/23/24 12:33 - Other Other Results/Comments: Disposition: The patient will be placed in observation in the hospital. She will be transfused 2 units of packed red blood cells. I fully expect her hospitalization to span less than 2 midnights and plan to discharge the patient first thing in the morning. Time spent: 35 minutes
--- NOTE | 2024-01-23 14:38 | PHARMACY PROGRESS NOTE ---
- Best Possible Medication History Admit Date and Time: 01/23/24 5326 Processed by: Pharmacy Medications reviewed in ED?: No Medication History completed: Yes Patient Interview: Completed Secondary Source(s): Insurance records As the person ultimately responsible for medication therapy, providers are able to order a medication from an existing home medication list in [facility] via the "Reconcile Routine" prior to Confirmation of that medication by direct support professional caregiver. Such practice is discouraged except when the physician, in their clinical judgment, deems that a medical need exists for a medication without regard to previous use.
[2024-01-23] MEDS: FERRIC GLUCONATE 125 MG in SODIUM CHLORIDE 0.9% 100ML 100 ML IV ONE (15:04)
[2024-01-23] MEDS ORDERED: SODIUM CHLORIDE 0.9% 500 ML IV ONE (15:47)
[2024-01-23] MEDS: diphenhydrAMINE 25 MG CAPSULE PO ONE (16:05)
[2024-01-23] MEDS: ACETAMINOPHEN 325 MG TABLET PO ONE (16:05)
[2024-01-23] MEDS: SODIUM CHLORIDE FLUSH 0.9% 10 ML SYRINGE IVP SCH (16:23)
[2024-01-23] MEDS: MELATONIN 10MG TAB PO SCH (20:33)
[2024-01-23] MEDS: ZOLPIDEM 5 MG TABLET PO PRN (22:39)
[2024-01-23] MEDS: PREGABALIN 100 MG CAPSULE PO SCH (22:39)
[2024-01-23 23:22] LABS: MEAN CORPUSCULAR HEMOGLOBIN 18.5 pg (27.0-31.0); MEAN CORPUSCULAR HGB CONC 27.8 g/dL (32.0-36.0); MEAN CORPUSCULAR VOLUME 66.5 fL (81.0-99.0); PLT - PLATELET COUNT 184 10^3/uL (130-450); RED BLOOD COUNT 3.46 10^6/uL (4.20-5.40); RED CELL DISTRIBUTION WIDTH 25.7 % (12.0-15.0); WHITE BLOOD COUNT 4.4 x10^3/uL (4.8-10.8)
[2024-01-23 23:30] LABS: HGB - HEMOGLOBIN 6.4 g/dL (12.0-16.0)
[2024-01-24 05:31] LABS: BASOPHILS % (AUTO) 0.7 %; EOSINOPHILS # (AUTO) 0.1 10^3/uL (0.0-0.7); EOSINOPHILS % (AUTO) 2.4 %; HCT - HEMATOCRIT 27.2 % (37.0-47.0); LYMPHOCYTES # (AUTO) 1.1 10^3/uL (1.5-3.5); LYMPHOCYTES % (AUTO) 25.5 %; MEAN CORPUSCULAR HEMOGLOBIN 20.1 pg (27.0-31.0); MEAN CORPUSCULAR HGB CONC 29.4 g/dL (32.0-36.0); MEAN CORPUSCULAR VOLUME 68.3 fL (81.0-99.0); MONOCYTES # (AUTO) 0.6 10^3/uL (0.0-1.0); NEUTROPHILS # (AUTO) 2.4 10^3/uL (1.5-6.6); NEUTROPHILS % (AUTO) 57.2 %; PLT - PLATELET COUNT 169 10^3/uL (130-450); RED BLOOD COUNT 3.98 10^6/uL (4.20-5.40); RED CELL DISTRIBUTION WIDTH 27.7 % (12.0-15.0); WHITE BLOOD COUNT 4.2 x10^3/uL (4.8-10.8)
[2024-01-24 05:51] LABS: SLIDE REVIEW? Indicated
[2024-01-24 06:19] LABS: PLATELET ESTIMATE, MANUAL NORMAL (130-450,000) (NORMAL)
[2024-01-24 08:22] LABS: HCT - HEMATOCRIT 29.4 % (37.0-47.0); HGB - HEMOGLOBIN 8.4 g/dL (12.0-16.0); MEAN CORPUSCULAR HGB CONC 28.6 g/dL (32.0-36.0); MEAN CORPUSCULAR VOLUME 69.8 fL (81.0-99.0); PLT - PLATELET COUNT 127 10^3/uL (130-450); RED BLOOD COUNT 4.21 10^6/uL (4.20-5.40); RED CELL DISTRIBUTION WIDTH 27.6 % (12.0-15.0); WHITE BLOOD COUNT 4.3 x10^3/uL (4.8-10.8)
[2024-01-24] MEDS: CETIRIZINE 10 MG TABLET PO SCH (09:10)
--- NOTE | 2024-01-24 10:21 | Discharge Plan ---
Discharge Plan Problem Reviewed?: Yes Disposition: Home, Self Care Condition: Good Diet: Regular Activity Restrictions: No Restrictions Shower Restrictions: No Driving Restrictions: No Weight Bearing: Full Weight Health Concerns: Menorrhagia Iron defiency Assessment: 1. Acute blood loss anemia secondary to menorrhagia The patient has received 3 units of packed red blood cells with the appropriate response to her hemoglobin. Hemoglobin is stable at 8.4 on the day of discharge. She needs to follow-up with her FIELD HEALTH OFFICER within the next couple of weeks. 2. Iron deficiency Patient with a history of gastric bypass surgery and she does not absorb p.o. iron. She previously was on iron infusions monthly however has not had any infusions in the past 18 months. Her PCP went out on maternity leave and has been back for quite some time but the patient has not scheduled an appointment with her. She should follow-up with her PCP in the next week 3. Menorrhagia She should follow-up with FIELD HEALTH OFFICER. She is also following with a naturopathic physician for perimenopausal symptoms. Continue control pills that have been prescribed to help control her heavy bleeding 4. Cervical spinal stenosis Continue home dose of Lyrica 50 mg at night 5. Obesity BMI 30.0 Weight loss is recommended through dietary modification and exercise as tolerated No Smoking: If you smoke, Please STOP! Call for help. Follow-up with: ARMOND APODACA DO [Primary Care Provider] -
--- NOTE | 2024-01-24 10:28 | DISCHARGE SUMMARY ---
Discharge Summary Admit Date: 01/23/24 Discharge Date: 01/24/24 Discharging Provider: Oriana Lima PA-C Primary Care Provider: Dr Jackie Dickson Code Status: Attempt Resuscitation Condition at Discharge: Good Discharge Disposition: 01 Home, Self Care - DIAGNOSES Discharge Diagnoses with Status of Each Condition: 1. Acute blood loss anemia secondary to menorrhagia The patient has received 3 units of packed red blood cells with the appropriate response to her hemoglobin. Hemoglobin is stable at 8.4 on the day of discharge. She needs to follow-up with her COLLAR STITCHER within the next couple of weeks. 2. Iron deficiency Patient with a history of gastric bypass surgery and she does not absorb p.o. iron. She previously was on iron infusions monthly however has not had any infusions in the past 18 months. Her PCP went out on maternity leave and has been back for quite some time but the patient has not scheduled an appointment with her. She should follow-up with her PCP in the next week. Of note she did receive a dose of IV iron yesterday 3. Menorrhagia She should follow-up with COLLAR STITCHER. She is also following with a naturopathic physician for perimenopausal symptoms. Continue control pills that have been prescribed to help control her heavy bleeding 4. Cervical spinal stenosis Continue home dose of Lyrica 50 mg at night 5. Obesity BMI 30.0 Weight loss is recommended through dietary modification and exercise as fifi rated - HPI History of Present Illness: From the admission HP: The patient is an extremely pleasant 48-year-old female. She has no significant past medical history. She has been following as an outpatient with a naturopathic physician who ordered some lab work. She was sent to the emergency room as she was found to have severe anemia. Workup in the emergency room was unremarkable other than the fact that the patient was found to have a hemoglobin of 5.1. Sound hospitalist were consulted for admission. When I went to see the patient she is resting comfortably in the bed. She says she has been quite weak. She has been having extremely heavy periods and is following with a naturopathic physician for perimenopausal type of symptoms. She denies fever or chills. No chest pain or significant shortness of breath. No nausea vomiting or diarrhea. No urinary complaints - HOSPITAL COURSE Hospital Course: The patient was admitted to the hospital. She was given a dose of IV iron. She received 3 units of packed red blood cells with the appropriate response to her hemoglobin. Today the patient is feeling much improved and feels that she is stable to go home. She is encouraged to see her PCP to resume her iron infusions. She also was encouraged to follow-up with COLLAR STITCHER. At this point maximum hospital benefit has been reached. The patient will be discharged today in stable condition. - ALLERGIES Allergies/Adverse Reactions: Allergies Allergy/AdvReac Type Severity Reaction Status Date / Time No Known Drug Allergies Allergy Verified 01/23/24 12:24 - MEDICATIONS Home Medications: Ambulatory Orders Medication Instructions Recorded Confirmed Acetaminophen [Tylenol] 1,300 mg PO BID 01/23/24 01/23/24 Cetirizine HCl [Zyrtec] 10 mg PO DAILY 01/23/24 01/23/24 Estradiol [Estrace] 42.5 gm VG PRN PRN 01/23/24 01/23/24 Melatonin 10 mg PO HS 01/23/24 01/23/24 Norethindrone-E.estradiol-Iron [Lo 1 tab ORAL DAILY 01/23/24 01/23/24 Loestrin Fe 1-10 Tablet] Ondansetron Odt [Zofran Odt] 4 mg TL Q8HR PRN 01/23/24 01/23/24 Pregabalin 100 mg PO HS 01/23/24 01/23/24 Zolpidem [Ambien] 5 mg PO HS PRN 01/23/24 01/23/24 - PHYSICAL EXAM AT DISCHARGE General Appearance: positive: No acute distress Eyes Bilateral: positive: Normal inspection ENT: positive: ENT inspection nml Neck: positive: Nml inspection Respiratory: positive: Chest non-tender, No respiratory distress, Breath sounds nml Abdomen: positive: Non-tender, No organomegaly, Nml bowel sounds Skin: positive: Color nml, No rash, Warm Extremities: positive: Non-tender, Full ROM Neurologic/Psychiatric: positive: Oriented x3, CN's nml (2-12) - LABS Result Diagrams: 01/24/24 07:50 01/23/24 12:33 - SEPSIS Current Stage of Sepsis: Ruled out - QUALITY (Female Hip Fx Only) Was patient sent home on osteoporosis medication?: No - FOLLOW UP Follow Up: Primary care in 1 week, OBGYN as soon as possible - TIME SPENT Time Spent in Discharge (Minutes): 35
[2024-01-24 11:20] VITALS: BP 149/94; O2SAT 96
== END 2024-01-24 11:30 | disposition home or self-care (01) ==
LOC: ED 12:12 → MS2 13:45 → INTOOBSV 13:45
PROVIDERS: ADMIT Physician Assistant; ATTEND Physician Assistant
DX: D62 Acute posthemorrhagic anemia (principal); N92.0 Excessive and frequent menstruation with regular cycle; E61.1 Iron deficiency; M48.02 Spinal stenosis, cervical region; E66.9 Obesity, unspecified; Z68.30 Body mass index [BMI] 30.0-30.9, adult; Z98.84 Bariatric surgery status
CPT/HCPCS: 36415; 36430; 80053; 82607; 82746; 83540; 83690; 84466; 84703; 85025; 85027; 85610; 85730; 86850; 86900; 86901; 86920; 96365; 96366; 99284; 99285; A9270; G0378; J2916; P9016

== ENCOUNTER 2024-02-21 08:21 | Day surgery (SDC) | payer BC ==
[~2024-02-21 08:21] MED LIST: ceFAZolin 2 GM VIAL ONE; metroNIDAZOLE 500 MG/100 ML 500 MG/100 ML BAG ONE
[2024-02-21] MEDS: LACTATED RINGERS 1,000 ML IV ONE ×3 (08:29→12:45)
[2024-02-21 08:45] LABS: HCG UR QUAL NEGATIVE
[2024-02-21] MEDS: ACETAMINOPHEN 325 MG TABLET PO ONE (08:56)
[2024-02-21 09:30] LABS: BASOPHILS % (AUTO) 0.5 %; EOSINOPHILS # (AUTO) 0.1 10^3/uL (0.0-0.7); EOSINOPHILS % (AUTO) 1.9 %; HCT - HEMATOCRIT 36.5 % (37.0-47.0); LYMPHOCYTES # (AUTO) 1.3 10^3/uL (1.5-3.5); LYMPHOCYTES % (AUTO) 36.1 %; MEAN CORPUSCULAR HEMOGLOBIN 23.2 pg (27.0-31.0); MEAN CORPUSCULAR HGB CONC 30.1 g/dL (32.0-36.0); MEAN CORPUSCULAR VOLUME 76.8 fL (81.0-99.0); MONOCYTES # (AUTO) 0.3 10^3/uL (0.0-1.0); MONOCYTES % (AUTO) 8.9 %; NEUTROPHILS # (AUTO) 1.9 10^3/uL (1.5-6.6); NEUTROPHILS % (AUTO) 52.3 %; PLT - PLATELET COUNT 170 10^3/uL (130-450); RED BLOOD COUNT 4.75 10^6/uL (4.20-5.40); WHITE BLOOD COUNT 3.7 x10^3/uL (4.8-10.8)
--- NOTE | 2024-02-21 09:33 | ANESTHESIA ---
Pre-Anesthesia VS, & Labs - Diagnosis premenopausal bleeding, excessive - Procedure hysteroscopy with endometrial ablation and conization of cervix cold knife Vital Signs: Temp Pulse Resp BP Pulse Ox O2 Flow Rate 36.2 C L 65 10 L 144/87 H 97 02/21/24 08:42 02/21/24 08:42 02/21/24 08:42 02/21/24 08:42 02/21/24 08:42 Height: 5 ft 7 in Weight (kg): 90.4 kg Body Mass Index: 31.1 BMI Classification: Obese - NPO >8 hours - Is Patient ?: No Home Medications and Allergies Home Medications: Ambulatory Orders Loratadine [Claritin] 10 mg PO DAILY PRN 02/16/24 Melatonin 10 mg PO HS 01/23/24 Norethindrone-E.estradiol-Iron [Lo Loestrin Fe 1-10 Tablet] 2 tab ORAL DAILY 01/23/24 Ondansetron Odt [Zofran Odt] 4 mg TL Q8HR PRN 01/23/24 Pregabalin 50 mg PO BID 01/23/24 Zolpidem [Ambien] 5 mg PO HS PRN 01/23/24 Loratadine [Claritin] 10 mg PO DAILY PRN 02/16/24 Allergies/Adverse Reactions: Allergies Allergy/AdvReac Type Severity Reaction Status Date / Time No Known Drug Allergies Allergy Verified 01/23/24 12:24 Anes History & Medical History - Anesthetic History Anesthesia Complications: reports: No previous complications - Medical History Cardiovascular: reports: Hypertension Pulmonary: reports: None Gastrointestinal: reports: GERD, Hiatal hernia Urinary: reports: None Neuro: reports: None Musculoskeletal: reports: Other Endocrine/Autoimmune: reports: Other Blood Disorders: reports: Anemia Skin: reports: None Smoking Status: Never smoker - Surgical History General: reports: Gastric surgery, Colonoscopy, EGD Gynecologic: reports: section Exam General: Alert, Oriented x3 Dental: WNL Mouth Opening: Greater than 4 Fingerbreadths Neck Mobility: Normal Mallampati classification: I Thyromental Distance: greater than 6 cm Respiratory: Lungs clear Cardiovascular: Regular rate Plan Anesthesia Type: General Consent for Procedure(s) Verified and Reviewed: Yes Code Status: Attempt Resuscitation ASA classification: 2-Mild systemic disease Is this case an emergency?: No
[2024-02-21] MEDS ORDERED: ONDANSETRON 4 MG/2 ML VIAL IVP PRN (09:36)
[2024-02-21] MEDS ORDERED: SCOPOLAMINE PATCH TOP ONE (09:36)
[2024-02-21] MEDS ORDERED: ATROPINE ABBOJECT 1 MG/10 ML SYRINGE IVP PRN (09:36)
[2024-02-21] MEDS ORDERED: HYDROmorphone 0.5 MG/0.5 ML SYRINGE IVP PRN (09:36)
[2024-02-21] MEDS ORDERED: fentaNYL 100 MCG/2 ML VIAL IVP PRN (09:36)
[2024-02-21] MEDS ORDERED: MORPHINE 2 MG/ML CARPUJECT IVP PRN (09:36)
[2024-02-21] MEDS ORDERED: NALOXONE 0.4 MG/ML VIAL IVP PRN (09:36)
[2024-02-21] MEDS ORDERED: METOCLOPRAMIDE 10 MG/2 ML VIAL IVP PRN (09:36)
[2024-02-21] MEDS ORDERED: ePHEDrine 50 MG/ML VIAL IVP PRN (09:36)
[2024-02-21] MEDS ORDERED: BUPIVACAINE 0.5% PF 10 ML VIAL ONE (09:49)
[2024-02-21 09:57] LABS: PLATELET ESTIMATE, MANUAL NORMAL (130-450,000) (NORMAL); PLATELET MORPHOLOGY NORMAL APPEARANCE (NORMAL)
[2024-02-21] MEDS ORDERED: LACTATED RINGERS 1,000 ML IV SCH (10:00)
[2024-02-21] MEDS ORDERED: POTASSIUM IODIDE/IODINE 14 ML SOLUTION ONE (10:06)
[2024-02-21] MEDS ORDERED: LIDOCAINE-PF 2% 10 ML AMP SUBQ ONE (10:31)
[2024-02-21] MEDS ORDERED: PROPOFOL 200 MG/20 ML VIAL IVP ONE (10:31)
[2024-02-21] MEDS ORDERED: fentaNYL 100 MCG/2 ML VIAL ONE (10:32)
[2024-02-21] MEDS ORDERED: MIDAZOLAM 2 MG/2 ML VIAL ONE (10:32)
[2024-02-21] MEDS ORDERED: DEXAMETHASONE 4 MG/ML VIAL ONE (11:11)
[2024-02-21] MEDS ORDERED: ONDANSETRON 4 MG/2 ML VIAL ONE ×2 (11:11→12:31)
[2024-02-21] MEDS ORDERED: KETOROLAC 30 MG/ML VIAL ONE (11:25)
[2024-02-21] MEDS: IRON DEXTRAN 200 MG in SODIUM CHLORIDE 0.9% 100ML 100 ML IV ONE (11:42)
[2024-02-21] MEDS: FERRIC SUBSULFATE 8 ML SOLUTION (FOR OR) TOP ONE (11:55)
[2024-02-21] MEDS: ONDANSETRON 4 MG/2 ML VIAL IVP PRN (12:34)
[2024-02-21] MEDS ORDERED: oxyCODONE 5 MG TABLET ONE (13:03)
[2024-02-21] MEDS: oxyCODONE 5 MG TABLET PO PRN (13:05)
--- NOTE | 2024-02-21 14:15 | ANESTHESIA POST OP EVALUATION ---
Anesthesia Post Eval - Post Anesthesia Eval Vitals: Last Vital Signs Temp 36.2 C L 02/21/24 13:40 Pulse 60 02/21/24 13:50 Resp 14 02/21/24 13:50 BP 153/85 H 02/21/24 13:50 Pulse Ox 97 02/21/24 13:50 O2 Flow Rate CV Function Including HR & BP: Stable Pain Control: Satisfactory Nausea & Vomiting: Negative Mental Status: Baseline Respiratory Status: Airway Patent Hydration Status: Satisfactory Anesthesia Complications: None
[2024-02-21 14:24] VITALS: O2SAT 99
[2024-02-21 15:13] VITALS: BP 151/96
--- NOTE | 2024-02-21 19:18 | OPERATIVE REPORT ---
Operative Report - General Procedure Date: 02/21/24 - Procedure Note Anesthesia Provider: Jose Ignacio CRNA Anesthesia Technique: General LMA IV Fluids (mL): 600 Estimated Blood Loss (mL): 20 Urine Output (mL): 0 - Other Other Information/Narrative: OPERATIVE NOTE Pre-op Diagnosis: 1. abnormal uterine bleeding requiring blood transfusion last month. 2. ASC-H pap with inconclusive colposcopy Post-op Diagnosis: same PROCEDURE: 1. Hysteroscopy with fractional curettage, NovaSure endometrial ablation 2. LEEP cone of cervix SURGEON: Martina Almeida MD FINDINGS: There were no palpable adnexal masses on exam under anesthesia. Hysteroscopic findings: empty uterine cavity. cervix is very wide open, TZ if visible just inside os. ? lesion seen at 12:00 removed. INDICATION FOR PROCEDURE: Patient is a 48 yo with abnormal uterine bleeding. Started on Lo Loestrin last month and bled so much her hb was 5 and she needed a blood transfusion. In addition she had an ASC-H pap and inconclusive colpo. She is here for hystersocopy to evaluate her cavity and Leep cone to evaluate her cervix and then Novasure ablation to hopefully stop the bleeding. DESCRIPTION OF PROCEDURE: The patient was brought to the operating room where general LMA anesthesia was administered. She was prepped and draped in normal s terile fashion with her legs in Danis stirrups. She had sequential compression devices on her lower extremities. She received 2 gm of Ancef and 500 mg of Flagyl for pre-operative antibiotics. Exam under anesthesia was done. Speculum was placed. Cervix was grasped with a tenaculum. ECC was done. The cervix allowed passage of a 6 mm hysteroscope without dilation. This was placed and saline was used as a distending medium, and the cavity was examined with the above findings. Both tubal ostia were visualized. The cavity was pretty clean, she has been bleeding for about a week. Sharp curettage was done. Cavity was measured for the Novasure. 4.5 cm deep and then 4.1 cm wide. The device was placed and welding machine operator helper arc and turned on. The Novasure applied current for just over 1.5 min. When it was done, I removed the device. I replaced the hysteroscope and noted a good even burn. Tenaculum was then removed and LEEP coated speculum was placed. Shortened red rubber catheter was used as an excellent smoke evacuator. 18 mm triangle shaped LEEP device was used to remove a tissue from inside the os around the TZ. A 5 mm loop was used to remove the lesion at 12:00. then another [place] was made with the triangle. The os was so open, it was hard to get a good excision, I was afraid to take too much. Cautery used to the edges. cautery was set at 50/50. Monsels was placed to the base of the excision. No further bleeding was noted. FLUID DEFICIT: <500 mL. URINE OUTPUT: None The patient had anesthesia reversed, LMA removed and she was brought to the recovery room in stable condition. She will be discharged home when awake and stable. Specimens: ECC, EMC, Cervix first pass, Cervix 12:00, cervix 3rd pass. Complications: None Counts were correct.
== END 2024-02-21 08:22 | disposition home or self-care (01) ==
LOC: SDS 08:21
PROVIDERS: ATTEND Obstetrics & Gynecology
PROC: 0UBC7ZX Excision of Cervix, Via Natural or Artificial Opening, Diagnostic (ICD-10-PCS; 2024-02-21)
PROC: 0U5B8ZZ Destruction of Endometrium, Via Natural or Artificial Opening Endoscopic (ICD-10-PCS; principal; 2024-02-21 09:30)
DX: N92.4 Excessive bleeding in the premenopausal period (principal); N87.9 Dysplasia of cervix uteri, unspecified; E66.9 Obesity, unspecified; Z68.31 Body mass index [BMI] 31.0-31.9, adult
CPT/HCPCS: 36415; 57522; 58563; 81025; 85025; A9270; J1750; J3490; J7120

== ENCOUNTER 2024-02-28 08:25 | Outpatient (CLI) | payer BC ==
--- NOTE | 2024-02-29 10:50 | Mammography Report ---
BILATERAL DIGITAL SCREENING MAMMOGRAM 3D/2D: 02/28/2024 CLINICAL: Routine screening. Comparison is made to exam dated: 04/17/2019 mammogram - [facility]. Both breasts are heterogeneously dense, which may obscure small masses (category c / 51-75% glandular tissue). No significant masses, calcifications, or other findings are seen in either breast. There has been no significant interval change. IMPRESSION: NEGATIVE There is no mammographic evidence of malignancy. A 1 year screening mammogram is recommended. Based on the Tyrer Cuzick model (a risk assessment model) the patient's lifetime risk is 19.6% and he r 10 year risk is 5.0%. According to the ACR, ACS, and NCCN guidelines, an annual breast MRI exam [place] ng with mammogram is recommended if the patient's lifetime risk is 20% or greater. This exam was interpreted at Station ID: [id number]. NOTE: For mammograms, a report in lay terms will be sent to the patient. Approximately 15% of breast malignancies will not be visualized mammographically. In the management of a palpable breast mass, a negative mammogram must not discourage biopsy of a clinically suspicious lesion. Electronically Signed By: Ele kwok/jay:02/28/2024 09:59:02 letter sent: No_Letter ACR BI-RADS Category 1: Negative 3341F PARENCHYMAL PATTERN: (D) - The breast(s) demonstrate(s) heterogeneously dense fibroglandular antonia garcia. BI-RADS CATEGORY: (1) - 1 RECOMMENDATION: (ANNUAL) - Recommend routine annual screening mammography. [id number] 1 year screening LATERALITY: (B)
== END 2024-02-28 08:26 | disposition home or self-care (01) ==
LOC: DI 08:25
DX: Z12.31 Encounter for screening mammogram for malignant neoplasm of breast (principal); R92.333 Mammographic heterogeneous density, bilateral breasts

== ENCOUNTER 2024-04-05 08:46 | Outpatient (CLI) | payer BC ==
[2024-04-05 09:14] LABS: BASOPHILS % (AUTO) 0.5 %; EOSINOPHILS # (AUTO) 0.1 10^3/uL (0.0-0.7); EOSINOPHILS % (AUTO) 1.8 %; HCT - HEMATOCRIT 40.1 % (37.0-47.0); HGB - HEMOGLOBIN 12.8 g/dL (12.0-16.0); LYMPHOCYTES # (AUTO) 1.6 10^3/uL (1.5-3.5); LYMPHOCYTES % (AUTO) 41.9 %; MEAN CORPUSCULAR HEMOGLOBIN 26.8 pg (27.0-31.0); MEAN CORPUSCULAR HGB CONC 31.9 g/dL (32.0-36.0); MEAN CORPUSCULAR VOLUME 84.1 fL (81.0-99.0); MONOCYTES # (AUTO) 0.3 10^3/uL (0.0-1.0); NEUTROPHILS # (AUTO) 1.9 10^3/uL (1.5-6.6); NEUTROPHILS % (AUTO) 48.5 %; PLT - PLATELET COUNT 174 10^3/uL (130-450); RED BLOOD COUNT 4.77 10^6/uL (4.20-5.40); RED CELL DISTRIBUTION WIDTH 20.3 % (12.0-15.0); WHITE BLOOD COUNT 3.8 x10^3/uL (4.8-10.8)
[2024-04-05 09:25] LABS: ALBUMIN 4.1 g/dL (3.2-5.5); ALBUMIN/GLOBULIN RATIO 1.8 (1.0-2.2); BILIRUBIN,TOTAL 0.4 mg/dL (0.2-1.0); CALCIUM 9.2 mg/dL (8.5-10.3); CREATININE 0.7 mg/dL (0.6-1.3); POTASSIUM 3.8 mmol/L (3.5-4.5); TOTAL PROTEIN 6.4 g/dL (6.4-8.9)
[2024-04-05 09:32] LABS: SLIDE REVIEW? Indicated
[2024-04-05 09:34] LABS: PLATELET ESTIMATE, MANUAL NORMAL (130-450,000) (NORMAL); PLATELET MORPHOLOGY NORMAL APPEARANCE (NORMAL)
[2024-04-05 09:35] LABS: WBC MORPHOLOGY (MULTIPLE) NORMAL APPEARANCE (NORMAL)
[2024-04-05 10:56] LABS: ESTIMATED AVERAGE GLUCOSE 94 mg/dL (70-100); HEMOGLOBIN A1c% 4.9 % (4.27-6.07)
== END 2024-04-05 08:47 | disposition home or self-care (01) ==
LOC: LAB 08:46
PROVIDERS: ATTEND Neuromusculoskeletal Medicine & OMM
DX: D51.1 Vitamin B12 deficiency anemia due to selective vitamin B12 malabsorption with proteinuria (principal); Z98.84 Bariatric surgery status; E55.9 Vitamin D deficiency, unspecified; I15.0 Renovascular hypertension; I70.1 Atherosclerosis of renal artery; K95.89 Other complications of other bariatric procedure; D50.8 Other iron deficiency anemias
CPT/HCPCS: 36415; 80053; 82306; 82607; 82728; 82746; 83036; 83540; 83921; 84425; 84466; 85025